=== PATIENT | male | born 1980 ===

== ENCOUNTER → 2019-12-17 | Outpatient (CLI) | payer OTHER ==
--- NOTE | 2019-12-19 09:14 | SLEEP ---
DATE OF STUDY: 12/19/2019 HOME SLEEP STUDY REFERRING PHYSICIAN: Dr. Booth. The patient is a 39-year-old who weighs 255 pounds with a BMI of 35.6. The patient underwent home sleep study performed at [facility]. Total recording time was 986 minutes. During the night study, the patient had no central obstructive apneas. There were 113 mixed apneas and 17 hypopneas. The patient's AHI was 15.1 per hour. Supine sleep was not observed. Nocturnal oximetry study revealed a mean oxygen saturation of 95% with the lowest of 80%. 70 minutes were spent in oxygen saturation less than 90%. Mean heart rate was 59 beats per minute. IMPRESSION: 1. Moderate obstructive sleep apnea at an AHI of 15.1 per hour. 2. Mild nocturnal hypoxia secondary to obstructive sleep apnea. RECOMMENDATIONS: 1. If the patient is clinically symptomatic or has comorbid conditions, then consider treatment of sleep apnea with CPAP. Alternate option would be oral appliance. 2. Once the patient is optimally treated, then follow up in 4-6 weeks to assess compliance with treatment and to document clinical improvement. 3. Weight loss is strongly advised. 4. Avoid [employer] depressants. 5. Cautioned regarding driving until symptoms of sleep apnea resolve with above recommendations. LUZ STALLINGS MD DR: JOSE/campbell JOB#: [id number] / [id number] TAYLOR Guajardo MD
== END | disposition home or self-care (01) ==
LOC: RT 09:53
PROVIDERS: ATTEND Internal Medicine Pulmonary Disease
DX: G47.33 Obstructive sleep apnea (adult) (pediatric) (principal); R09.02 Hypoxemia
CPT/HCPCS: G0399